=== PATIENT | female | born 1995 | race Caucasian/White ===

== ENCOUNTER 2016-12-25 22:21 | Emergency (ER) | payer OTHER ==
[2016-12-25] MEDS ORDERED: Ondansetron INJ* 2 MG/ML VIAL IV ONE (22:47)
[2016-12-25] MEDS ORDERED: NS 0.9% 1000 ML* 1,000 ML IV ONE (22:47)
[2016-12-25 23:22] LABS: Hematocrit 45 % (35-47); Hemoglobin 15.4 g/dl (12.0-16.0); Mean Corpuscular HGB Conc 34 g/dl (31-36); Mean Corpuscular Hemoglobin 31 pg (27-31); Mean Corpuscular Volume 90 fL (80-97); Mean Platelet Volume 10 um3 (7.4-10.4); Red Blood Count 5.01 10^6/ul (4.0-5.4); Red Cell Distribution Width 13 % (10.5-15); White Blood Count 13.1 10^3/ul (3.5-10.8)
[2016-12-25 23:37] LABS: Albumin 4.8 g/dL (3.2-5.2); C Reactive Protein 3.38 mg/L (< 5.00); Calcium 10.2 mg/dL (8.6-10.3); EGFR Non-African American 80.1 (>60); Globulin 3.2 g/dL (2-4); Magnesium 1.8 mg/dL (1.9-2.7); Potassium 3.7 mmol/L (3.5-5.0); Total Bilirubin 1.3 mg/dL (0.2-1.0)
--- NOTE | 2016-12-26 00:10 | ED ---
Sarah Fan Anna, scribed for Antonio Barnett MD on 12/25/16 at 2249 . GI/ HPI - HPI Summary HPI Summary: Patient is a 21 y/o female coming to [facility] presenting with sudden onset of emesis that began 18:30 this evening. She describes the severity of the pain as 7/10. She additionally reports abdominal cramping, nausea, diarrhea, chills, and numbness in her arms and legs. She did not eat anything unusual today, and nobody else is sick at home. - History of Current Complaint Chief Complaint: EDNauseaVomitDiarrh Time Seen by Provider: 12/25/16 22:43 Stated Complaint: N, V & D Hx Obtained From: Patient Pain Intensity: 7 - Allergy/Home Medications Allergies/Adverse Reactions: Allergies Allergy/AdvReac Type Severity Reaction Status Date / Time Doxycycline Allergy Vomiting Verified 12/25/16 22:29 PMH/Surg Hx/FS Hx/Imm Hx Infectious Disease History: No Infectious Disease History: Denies: Traveled Outside the [place] in Last 30 Days - Family History Known Family History: Negative: Cardiac Disease, Diabetes - Social History Occupation: Student Lives: With Family Alcohol Use: Occasionally Substance Use Type: Reports: None Review of Systems Positive: Chills Positive: Abdominal Pain, Vomiting, Diarrhea, Nausea Positive: Numbness All Other Systems Reviewed And Are Negative: Yes Physical Exam Triage Information Reviewed: Yes Vital Signs On Initial Exam: Initial Vitals Temp Pulse Resp BP Pulse Ox 97.4 F 103 20 118/66 100 12/25/16 22:26 12/25/16 22:26 12/25/16 22:26 12/25/16 22:26 12/25/16 22:26 Vital Signs Reviewed: Yes Appearance: Positive: Well-Appearing, No Pain Distress Skin: Positive: Warm Head/Face: Positive: Normal Head/Face Inspection Eyes: Positive: ROSA ENT: Positive: Hearing grossly normal Neck: Positive: Supple Respiratory/Lung Sounds: Positive: Clear to Auscultation, Breath Sounds Present Cardiovascular: Positive: RRR Abdomen Description: Positive: Nontender, Soft Bowel Sounds: Positive: Present Musculoskeletal: Positive: Strength/ROM Intact Neurological: Positive: Sensory/Motor Intact, Alert, Oriented to Person Place, Time, Normal Gait Diagnostics - Vital Signs Vital Signs Temp Pulse Resp BP Pulse Ox 12/25/16 22:26 97.4 F 103 20 118/66 100 - Laboratory Lab Results: Lab Results 12/25/16 12/25/16 12/25/16 Range/Units 23:09 23:09 23:09 WBC 13.1 H (3.5-10.8) 10^3/ul RBC 5.01 (4.0-5.4) 10^6/ul Hgb 15.4 (12.0-16.0) g/dl Hct 45 (35-47) % MCV 90 (80-97) fL MCH 31 (27-31) pg MCHC 34 (31-36) g/dl RDW 13 (10.5-15) % Plt Count 269 (150-450) 10^3/ul MPV 10 (7.4-10.4) um3 Neut % (Auto) 86.6 H (38-83) % Lymph % (Auto) 5.0 L (25-47) % Cataño % (Auto) 7.4 (1-9) % Eos % (Auto) 0.2 (0-6) % Baso % (Auto) 0.8 (0-2) % Absolute Neuts (auto) 11.3 H (1.5-7.7) 10^3/ul Absolute Lymphs (auto) 0.7 L (1.0-4.8) 10^3/ul Absolute Monos (auto) 1.0 H (0-0.8) 10^3/ul Absolute Eos (auto) 0 (0-0.6) 10^3/ul Absolute Basos (auto) 0.1 (0-0.2) 10^3/ul Absolute Nucleated RBC 0.01 10^3/ul Nucleated RBC % 0.1 Sodium 136 (133-145) mmol/L Potassium 3.7 (3.5-5.0) mmol/L Chloride 103 (101-111) mmol/L Carbon Dioxide 19 L (22-32) mmol/L Anion Gap 14 H (2-11) mmol/L BUN 16 (6-24) mg/dL Creatinine 0.89 (0.51-0.95) mg/dL Est GFR ( Amer) 103.0 (>60) Est GFR (Non-Af Amer) 80.1 (>60) BUN/Creatinine Ratio 18.0 (8-20) Glucose 145 H (70-100) mg/dL Lactic Acid 3.0 H* (0.5-2.0) mmol/L Calcium 10.2 (8.6-10.3) mg/dL Magnesium 1.8 L (1.9-2.7) mg/dL Total Bilirubin 1.30 H (0.2-1.0) mg/dL AST 18 (13-39) U/L ALT 15 (7-52) U/L Alkaline Phosphatase 53 (34-104) U/L C-Reactive Protein 3.38 (< 5.00) mg/L Total Protein 8.0 (6.4-8.9) g/dL Albumin 4.8 (3.2-5.2) g/dL Globulin 3.2 (2-4) g/dL Albumin/Globulin Ratio 1.5 (1-3) Result Diagrams: 12/25/16 23:09 12/25/16 23:09 Lab Statement: Any lab studies that have been ordered have been reviewed, and results considered in the medical decision making process. Re-Evaluation - Re-Evaluation First Eval Change: Improved - tolerating po GIGU Course/Dx - Course Assessment/Plan: Patient is a 21 y/o female coming to [facility] presenting with sudden onset of emesis that began 18:30 this evening. She additionally reports abdominal cramping, nausea, diarrhea, chills, and numbness in her arms and legs. She was treated with Zofran and given IV fluids. Labs reveal WBC of 13.1, lactic acid of 3.0, and glucose of 145. Patient will be discharged with recommendation of maintaining a bland diet. Patient is agreeable with this plan. - Diagnoses Provider Diagnoses: Gastroenteritis Discharge - Discharge Plan Condition: Improved Disposition: HOME Patient Education Materials: Diet for Ulcers and Gastritis (ED), Acute Nausea and Vomiting (ED) Referrals: [facility] [Primary Care Provider] - Additional Instructions: Eat a bland diet as described in patient education materials. Follow up with primary care physician in 2 days. Return to ED for new or worsening symptoms. The documentation as recorded by the Sarah alexander Anna accurately reflects the service I personally performed and the decisions made by me, Antonio Barnett MD.
[2016-12-26] MEDS ORDERED: Ondansetron INJ* 2 MG/ML VIAL ONE (00:29)
[2016-12-26] MEDS ORDERED: Ondansetron ODT TAB* 4 MG PO ONE (01:20)
[2016-12-26 01:24] VITALS: BP 120/80
== END 2016-12-26 01:36 | disposition home or self-care (01) ==
LOC: ED 22:21
DX: K52.9 Noninfective gastroenteritis and colitis, unspecified (principal)
CPT/HCPCS: 36415; 80053; 83605; 83735; 85025; 86140; 96360; 96374; 99283; A9270-GY; J2405